=== PATIENT | female | born 1980 | race Caucasian/White ===

== ENCOUNTER → 2025-04-03 | Emergency (ER) | payer OTHER ==
[2025-04-03 11:52] VITALS: PULSE 85; RESP 18; O2SAT 99
== END | disposition home or self-care (01) ==
LOC: ER 11:39
DX: Z00.00 Encounter for general adult medical examination without abnormal findings (principal); Z53.21 Procedure and treatment not carried out due to patient leaving prior to being seen by health care provider
CPT/HCPCS: 99281